=== PATIENT | male | born 1990 | race Two or more races ===

== ENCOUNTER 2018-06-05 00:15 | Emergency (ER) | payer OTHER ==
[~2018-06-05] VITALS: Ht 182.9 cm; Wt 104.8 kg
[2018-06-05 01:30] VITALS: BP 142/80
== END 2018-06-05 03:32 | disposition home or self-care (01) ==
LOC: ER 00:27
DX: R09.89 Other specified symptoms and signs involving the circulatory and respiratory systems (principal)
CPT/HCPCS: 70360-TC; 71045-TC

== ENCOUNTER 2019-08-21 05:38 | Emergency (ER) | payer SELFPAY ==
[~2019-08-21] VITALS: Ht 182.9 cm; Wt 112.9 kg
--- NOTE | 2019-08-21 06:09 | NUR ---
PATIENT CAME TO ER BED 9 C/O DIZZINESS SINCE FRIDAY. PATIENT STATES THAT HE HAS BEEN FEELING DIZZY EVEN AFTER EATING AND DRINKING. AAOX4. NO SOB. BREATHING EVENLY AND UNLABORED ON ROOM AIR. CONNECTED TO MONITOR.
[2019-08-21 06:31] LABS: CALCIUM, SERUM 8.4 mg/dL (8.5-10.1); CREATININE 1.2 mg/dL (0.6-1.3); POTASSIUM 3.5 mmol/L (3.5-5.1)
[2019-08-21 06:37] LABS: ALBUMIN 4.1 g/dL (3.4-5.0); BILIRUBIN,DIRECT 0.1 mg/dL (0.0-0.2); BILIRUBIN,TOTAL 0.3 mg/dL (0.2-1.0); TOTAL PROTEIN, SERUM 7.2 g/dL (6.4-8.2)
[2019-08-21 06:39] LABS: BASOPHILS % (AUTO) 0.7 % (0.0-2.0); EOSINOPHILS % (AUTO) 2.4 % (0.0-6.0); HEMATOCRIT 44 % (39-51); HEMOGLOBIN 14.9 g/dL (13.5-17.5); LYMPHOCYTES # (AUTO) 1.9 /CMM (0.8-4.8); LYMPHOCYTES % (AUTO) 31.2 % (20.0-44.0); MEAN CORPUSCULAR HGB CONC 34 g/dl (31.0-36.0); MEAN CORPUSCULAR VOLUME 88 fL (80-96); MONOCYTES # (AUTO) 0.5 /CMM (0.1-1.30); MONOCYTES % (AUTO) 8.2 % (2.0-12.0); NEUTROPHILS # (AUTO) 3.5 /CMM (1.8-8.9); NEUTROPHILS % (AUTO) 57.5 % (43.0-81.0); PLATELET COUNT (AUTO) 138 /CMM (150-450); RED BLOOD CELL COUNT(AUTO) 4.98 MIL/uL (4.5-6.0)
[2019-08-21 06:58] VITALS: BP 137/82
--- NOTE | 2019-08-21 06:58 | NUR ---
Patient discharged to home in stable condition. Written and verbal after care instructions given. Patient verbalizes understanding of instruction.
== END 2019-08-21 06:59 | disposition home or self-care (01) ==
LOC: ER 05:45
DX: R42 Dizziness and giddiness (principal)
CPT/HCPCS: 36415; 80048-TC; 80076-TC; 82962-TC; 83690-TC; 85025-TC

== ENCOUNTER 2021-07-14 17:08 | Emergency (ER) | payer MEDICAID ==
[~2021-07-14] VITALS: Ht 182.9 cm; Wt 115.7 kg
[2021-07-14 17:20] VITALS: BP 144/97
--- NOTE | 2021-07-14 17:22 | NUR ---
BIB SELF C/O "I THINK IM HAVING ALLERGIC REACTION AFTER EATING CHEESE" NO NOTED SOB, ITCHINESS OR RASHES. THE PATIENT IS ALERT AND ORIENTED X4. DENIES PAIN. IN ROOM AIR AND DENIES SOB. RESPIRATION REGULAR AND UNLABORED. WILL CONTINUE TO MONITOR THE PATIENT.
--- NOTE | 2021-07-14 17:53 | NUR ---
Patient discharged to home in stable condition. Written and verbal after care instructions given. Patient verbalizes understanding of instruction.
== END 2021-07-14 17:54 | disposition home or self-care (01) ==
LOC: ER 17:21
DX: F41.9 Anxiety disorder, unspecified (principal)

== ENCOUNTER 2024-12-26 21:57 | Emergency (ER) | payer MEDICAID, OTHER ==
[~2024-12-26] VITALS: Ht 182.9 cm; Wt 122.5 kg
[2024-12-27] MEDS ORDERED: FLUORESCEIN SODIUM OPHTH 1 EA STRIP ONE (00:23)
[2024-12-27] MEDS: FLUORESCEIN SODIUM OPHTH 1 EA STRIP OP ONE (00:42)
[2024-12-27] MEDS: PROPARACAINE HCL OPHTH 15 ML BOTTLE OP ONE (00:43)
[2024-12-27 01:47] VITALS: BP 170/111; TEMP 97.3; O2SAT 98
== END 2024-12-27 01:47 | disposition home or self-care (01) ==
LOC: ER 22:00
DX: H43.392 Other vitreous opacities, left eye (principal); I10 Essential (primary) hypertension